=== PATIENT | male | born 1970 | race African-American/Black ===

== ENCOUNTER 2021-09-29 23:01 | Emergency (ER) | payer OTHER ==
[~2021-09-29] VITALS: Ht 182.9 cm; Wt 106.8 kg
[2021-09-29] MEDS ORDERED: ONDANSETRON PF 4 MG/2 ML VIAL. IVP ONE (23:30)
[2021-09-29] MEDS ORDERED: IV NORMAL SALINE 1,000ML 1,000 ML IV ONE (23:30)
[2021-09-29] MEDS ORDERED: MORPHINE SULFATE 4 MG/ML DISP.SYRIN. IV ONE (23:30)
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
--- NOTE | 2021-09-29 23:58 | RAD ---
XR KNEE 3 VIEWS_RT 09/29/2021 11:25 PM INDICATION: Fall, lateral pain COMPARISON: None available. TECHNIQUE: 4 views of the right knee are provided. FINDINGS/ IMPRESSION: There is a lateral tibial plateau fracture immediately lateral to the tibial eminence extending obliq uely to the lateral cortex of the proximal femoral diaphysis. Proximal fracture fragment measures sherri roximately 5.4 cm. There is lipohemarthrosis. Patellofemoral and medial femorotibial joint spaces are maintained. There is minimal depression of the lateral tibial plateau by 1-2 mm. Electronically signed by: Anabelle Mock MD (09/29/2021 11:55 PM) [facility]
[2021-09-30] MEDS ORDERED: HYDR-2759 PO (00:25)
[2021-09-30] MEDS ORDERED: HYDROcodone/APAP 5/325MG 1 TAB TABLET PO ONE (00:30)
[2021-09-30 00:55] VITALS: BP 147/99
== END 2021-09-30 00:55 | disposition home or self-care (01) ==
LOC: ER 23:01
DX: S82.141A Displaced bicondylar fracture of right tibia, initial encounter for closed fracture (principal); Z88.2 Allergy status to sulfonamides; X50.9XXA Other and unspecified overexertion or strenuous movements or postures, initial encounter; Y93.55 Activity, bike riding; Y92.89 Other specified places as the place of occurrence of the external cause; Y99.8 Other external cause status
CPT/HCPCS: 29505; 73562; 96361; 96374; 96375; 99284; J2270; J2405; J7030